=== PATIENT | female | born 1985 | race Caucasian/White ===

== ENCOUNTER 2018-01-13 09:36 | Emergency (ER) | payer BC, OTHER ==
[2018-01-13] MEDS ORDERED: Ondansetron PF 4 MG/2 ML Vial ONE ×2 (10:17→11:24)
[2018-01-13 10:45] LABS: #Basophils 0.1 thou/uL (0.0-0.2); #Eosinphils 0.1 thou/uL (0.0-0.7); #Lymphocytes 1.7 thou/uL (1.20-3.40); #Monocytes 0.5 thou/uL (0.11-0.59); %Eosinophils 1.8 % (0.0-10.0); %Lymphocytes 32.2 % (21.0-51.0); %Monocytes 8.9 % (0.0-10.0); %Neutrophils 56.1 % (42.0-75.0); Hemoglobin 13.2 g/dL (12.0-16.0); Mean Corpuscular HGB CONC 34.2 g/dL (32.0-36.0); Mean Corpuscular Volume 93.5 fl (81.0-99.0); Mean Platelet Volume 6.8 fL (7.4-10.4); Platelet Count 248 thou/uL (130-400); RBC Distribution Width 12.1 % (11.5-14.5); Red Blood Cell (RBC) Count 4.13 mill/uL (4.20-5.40); White Blood Cell (WBC) Count 5.3 thou/uL (4.8-10.8)
[2018-01-13 11:07] LABS: ALT (SGPT) 10 U/L (8-55); AST (SGOT) 16 U/L (5-34); Albumin 4.4 g/dL (3.5-5.0); Alkaline Phosphatase 51 U/L (40-150); Anion Gap 10 mmol/L (10-20); BUN (Urea Nitrogen) 8 mg/dL (7.0-18.7); Bilirubin, Total 0.7 mg/dL (0.2-1.2); Calc. Creatinine Clearance 0 mL/min (70-130); Calcium 9.5 mg/dL (7.8-10.44); Carbon Dioxide 25 mmol/L (22-29); Chloride 109 mmol/L (98-107); Estimated GFR-MDRD 80; Globulin 2.7 g/dL (2.4-3.5); Glucose 123 mg/dL (70-105); Lipase 18 U/L (8-78); Potassium 3.8 mmol/L (3.5-5.1); Protein, Total 7.1 g/dL (6.0-8.3); Sodium 140 mmol/L (136-145)
[2018-01-13 11:37] LABS: Bilirubin Negative (Negative); Glucose, Urine (Dipstick) Negative (Negative); pH, Urine 6.5 (5.0-9.0)
[2018-01-13 11:40] LABS: Pregnancy Test - Urine (BHCG) Negative (Negative); Pregu Control Background? CLEAR/WHITE (CLR/WHITE); Pregu Control Bar Appear? YES (CONTROL BAR); Specific Gravity 1.025 (1.002-1.036)
[2018-01-13 11:46] LABS: Clarity Opaque (Clear); Nitrite Unable to Interpret (Negative)
[2018-01-13 11:47] LABS: Blood, Urine Large (Negative); Protein, Urine (Dipstick) 100 mg/dL (Neg-Trace); Specific Gravity, Urine 1.025 (1.002-1.036); Urobilinogen UNABLE TO INTERPRET mg/dL (0.2-1.0)
[2018-01-13 11:49] LABS: RBC/HPF GREATER THAN 50-TNTC HPF (0-3)
[2018-01-13 11:50] LABS: Leukocyte Small (Negative)
[2018-01-13 11:57] LABS: Bacteria/HPF Rare-Few HPF (None Seen); Hyaline Casts/LPF NONE SEEN LPF (0-3 Hyaline)
[2018-01-13] MEDS ORDERED: Ketorolac Tromethamine 30 MG/ML VIAL ONE (11:57)
--- NOTE | 2018-01-13 13:26 | CT ---
CT ABDOMEN AND PELVIS WITHOUT IV CONTRAST: INDICATIONS: Right-sided abdominal pain. FINDINGS: There is mild to moderate right hydronephrosis. There is a 4 mm calculus within the distal right ure ter, at the level of the pelvic inlet. There are tiny, 1 to 2 mm, nonobstructing calculi within the inferior pole and superior pole of the right kidney. No nonobstructing calculi are seen within the l eft kidney. The lung bases are clear. No focal hepatic lesion is evident. The visualized spleen, pancreas, and adrenal glands appear within normal limits on this unopacified e xam. There is a normal retrocecal appendix. The bladder, rectum, and perirectal soft tissues are un remarkable. The uterus and adnexa appear within normal limits for CT. There is a mild amount of ret ained stool within the colon. No acute osseous abnormality is evident. IMPRESSION: 1. A 4 mm distal right ureteral calculus with mild to moderate right hydronephrosis. 2. Right nephrolithiasis. 3. Mild amount of retained stool within the colon. POS: LINNEA
== END 2018-01-13 13:38 | disposition home or self-care (01) ==
LOC: ERS 09:36
DX: N20.0 Calculus of kidney (principal); F41.9 Anxiety disorder, unspecified; Z79.01 Long term (current) use of anticoagulants; Z79.899 Other long term (current) drug therapy
CPT/HCPCS: 74176; 80053; 81003; 81015; 81025; 83690; 85025; 87086; 96361; 96374; 96375; 96376; J0696; J1885; J2270; J2405

== ENCOUNTER 2020-06-05 14:36 | Inpatient (IN) | payer BC ==
[~2020-06-05 14:36] MED LIST: Bupivacaine 0.25% HCL 30 ML VIAL ONE; Bupivacaine PF 0.5% 30 ML VIAL ONE; Bupivacaine/Epinephrine 0.25% 30 ML VIAL ONE
[2020-06-05] MEDS ORDERED: Lactated Ringer's 1,000 ML IV SCH (15:15)
[2020-06-05] MEDS ORDERED: HYDROcodone/Acetaminophen 5/325 mg Tablet PO PRN ×2 (15:15)
[2020-06-05] MEDS ORDERED: NS / Oxytocin 40 units/1000ml 1,000 ML IV PRN ×2 (15:15→15:41)
[2020-06-05] MEDS ORDERED: Butorphanol Tartrate 1 MG/ML VIAL SLOW IVP PRN (15:15)
[2020-06-05] MEDS ORDERED: Magnesium Sulfate 20 GM/WATER 500 ML BAG IVPB SCH (15:15)
[2020-06-05] MEDS ORDERED: Lidocaine 1% (PF) 30 ML VIAL SC PRN ×2 (15:15→15:41)
[2020-06-05] MEDS ORDERED: Promethazine HCl 25 MG/ML VIAL IM PRN (15:15)
[2020-06-05] MEDS ORDERED: Calcium Gluc 4.6 MEQ/10 ML (100 MG/ML) SLOW IVP PRN (15:15)
[2020-06-05] MEDS ORDERED: Ibuprofen 800 MG TAB PO PRN (15:15)
--- NOTE | 2020-06-05 15:25 | PDOC.LDHP ---
Labor and Delivery H&P HPI: Sent here from the Office for BPs 140/90s there. Sent per Dr Arias. 36 english at [facility] 06/19/20 here for c/o lights in vision and midepigastric "spasm ". Good FM, no VB, no LOF. Review of Systems: complete ROS performed and as per HPI Current gestational age (weeks): 37 (4) Due date: 06/19/20 Dating criteria: last menstrual period Grav: 2 Para: 1 OB History Details: x 1, gestational HTN Current complications: none Abnormal US findings: No Current medications: pre- vitamins Allergies/Adverse Reactions: Allergies Allergy/AdvReac Type Severity Reaction Status Date / Time No Known Allergies Allergy Verified 05/05/15 11:59 - Physical Exam Abnormal vital signs: 150-90s here, max systolic 157 General: resting Lungs: nonlabored breathing Abdomen: gravid FHT: category 1 Letts contractions every: none - Vaginal Exam cm dilated: 1 (per RN with me in room) Effacement: 50% Station: -2 - Assessment L&D Assessment: medically indicated induction (Severe Preeclampsia based on SXS possibly related to BP) - Plan Plan: admit to L&D, cervical ripening, labor augmentation if indicated, informed consent obtained, magnesium for seizure prophylaxis, anesthesia consult for pain management, other (Ordered CMP. I am at bedside now. Dr Ibarra aware. patient ok with plan.)
[2020-06-05] MEDS ORDERED: Penicillin G Potassium 5 MILL.UNITS in Sodium Chloride 0.9% 100 ML IVPB SCH (15:45)
[2020-06-05] MEDS ORDERED: Penicillin G Potassium 5 MILL.UNITS VIAL ONE (16:03)
[2020-06-05] MEDS: hydrALAZINE 20 MG/ML VIAL SLOW IVP PRN ×2 (16:41→16:58)
[2020-06-05 17:08] LABS: Hemoglobin 11.4 g/dL (12.0-16.0); Mean Corpuscular HGB CONC 34.1 g/dL (32.0-36.0); Mean Corpuscular Hemoglobin 30.8 pg (27.0-31.0); Mean Corpuscular Volume 90.3 fL (78.0-98.0); Mean Platelet Volume 8.6 fL (7.4-10.4); Platelet Count 230 thou/uL (130-400); RBC Distribution Width 12.2 % (11.5-14.5); Red Blood Cell (RBC) Count 3.71 mill/uL (4.20-5.40); White Blood Cell (WBC) Count 11.2 thou/uL (4.8-10.8)
[2020-06-05 17:32] LABS: ALT (SGPT) 7 U/L (8-55); AST (SGOT) 12 U/L (5-34); Albumin 3.3 g/dL (3.5-5.0); Alkaline Phosphatase 112 U/L (40-110); Anion Gap 13 mmol/L (10-20); BUN (Urea Nitrogen) 5 mg/dL (7.0-18.7); Bilirubin, Total 0.3 mg/dL (0.2-1.2); Calc. Creatinine Clearance 0 mL/min (70-130); Calcium 8.8 mg/dL (7.8-10.44); Carbon Dioxide 19 mmol/L (22-29); Chloride 110 mmol/L (98-107); Estimated GFR-MDRD Greater than 90; Globulin 2.7 g/dL (2.4-3.5); Glucose 67 mg/dL (70-105); Potassium 3.6 mmol/L (3.5-5.1); Sodium 138 mmol/L (136-145)
[2020-06-05 17:46] LABS: HBSAg Index 0.15 S/CO (0-0.99); HIV (1/2) Antibody/Antigen Non-Reactive (NonReactive); HIV 1/2 INDEX 0.12 S/CO (<1.00); Hep B Surf Ag Non-Reactive S/CO (NonReactive)
[2020-06-05 17:51] LABS: Syphilis Antibody Nonreactive (Nonreactive); Syphilis Antibody Index 0.03 S/CO (<1.00 Non-Reactive)
[2020-06-05] MEDS ORDERED: Labetalol HCl 100 MG/20 ML VIAL SLOW IVP SCH (18:00)
[2020-06-05] MEDS: Acetaminophen 500 MG TAB PO PRN (20:50)
[2020-06-05] MEDS: Penicillin G 2.5 MILL.units 2.5 MILL.UNITS in Premix Bag 1 BAG IVPB SCH (21:55)
[2020-06-05 22:24] VITALS: BMI 37.9
[2020-06-06] MEDS ORDERED: Fentanyl 4 mcg/Bup 0.1% Cadd 100 ML ONE ×2 (00:38→07:03)
[2020-06-06] MEDS ORDERED: Lactated Ringer's 500 ML IV PRN (01:32)
[2020-06-06] MEDS ORDERED: diphenhydrAMINE 50 MG/ML VIAL IVP PRN (01:32)
[2020-06-06] MEDS ORDERED: EPHEDRINE 25 MG/5 ML SYRINGE SLOW IVP PRN (01:32)
[2020-06-06] MEDS ORDERED: Promethazine HCl 25 MG/ML VIAL IM PRN (01:32)
[2020-06-06] MEDS ORDERED: Acetaminophen 325 MG TAB PO PRN (01:32)
[2020-06-06] MEDS ORDERED: Ondansetron PF 4 MG/2 ML Vial IVP PRN (01:32)
[2020-06-06] MEDS ORDERED: Naloxone HCl 0.4 mg/ml Vial IVP PRN ×2 (01:32)
[2020-06-06] MEDS ORDERED: Fentanyl 4 mcg/Bupivacaine 0.1% Cassette 100 ML EPIDURAL SCH (01:45)
[2020-06-06] MEDS ORDERED: Communication Order-Pharmacy FS SCH (01:45)
[2020-06-06] MEDS: Ondansetron PF 4 MG/2 ML Vial IVP PRN ×2 (01:48→07:39)
[2020-06-06] MEDS: Penicillin G 2.5 MILL.units 2.5 MILL.UNITS in Premix Bag 1 BAG IVPB SCH ×2 (02:13→06:25)
[2020-06-06] MEDS: Magnesium Sulfate 20 gm/500 ml 20 GM/500 ML BAG IVPB SCH ×2 (03:03→15:49)
[2020-06-06] MEDS ORDERED: NS w/ Oxytocin 10 units 500 ML ONE (03:24)
[2020-06-06] MEDS ORDERED: NS w/ Oxytocin 10 units 500 ML IVPB SCH (03:30)
[2020-06-06] MEDS: Acetaminophen 500 MG TAB PO PRN (03:45)
[2020-06-06] MEDS ORDERED: Labetalol HCl 100 MG/20 ML VIAL ONE (06:38)
[2020-06-06] MEDS ORDERED: Labetalol HCl 100 MG/20 ML VIAL SLOW IVP SCH ×3 (06:45→19:45)
[2020-06-06] MEDS ORDERED: Labetalol HCl 100 MG/20 ML VIAL SLOW IVP PRN (07:00)
[2020-06-06] MEDS ORDERED: Zolpidem Tartrate 5 MG TAB PO SCH (21:15)
[2020-06-06] MEDS ORDERED: NIFEdipine XL 30 MG TAB PO SCH (21:15)
[2020-06-06] MEDS ORDERED: Ibuprofen 800 MG TAB PO SCH (22:00)
[2020-06-07] MEDS: Magnesium Sulfate 20 gm/500 ml 20 GM/500 ML BAG IVPB SCH (02:23)
[2020-06-07] MEDS ORDERED: Ibuprofen 800 MG TAB PO SCH ×2 (02:30→14:00)
[2020-06-07] MEDS ORDERED: traMADol HCl 50 MG TAB PO PRN (07:37)
[2020-06-07] MEDS ORDERED: Benzocaine-Menthol 82.5 ML CAN TOP PRN (07:37)
[2020-06-07] MEDS ORDERED: Bisacodyl 10 MG SUPP PR PRN (07:37)
[2020-06-07] MEDS ORDERED: Milk Of Magnesia 30 ML UDCUP PO PRN (07:37)
[2020-06-07] MEDS ORDERED: Preparation H Ointment 28 GM TUBE PR PRN (07:37)
[2020-06-07] MEDS ORDERED: Lanolin Ointment 7 GM TUBE TOP PRN (07:37)
[2020-06-07] MEDS ORDERED: Misoprostol 200 MCG TAB VAG PRN (07:37)
[2020-06-07] MEDS ORDERED: Adacel (T-DAP) 0.5 ML SYRINGE IM ONE (07:37)
[2020-06-07] MEDS ORDERED: hydrALAZINE 20 MG/ML VIAL SLOW IVP PRN (07:37)
[2020-06-07] MEDS ORDERED: NS / Oxytocin 40 units/1000ml 1,000 ML IV SCH (07:45)
--- NOTE | 2020-06-07 07:51 | PDOC.EVN ---
Event Note - Event Note Event Note: LICU Excellent u/o >200 ml/hr. Blood pressures remain <160/100. No PIH symptoms. Rested well with the ambien. Baby doing well. A/P post day 1 from with severe pih-improving. D/c magnesium. Transfer to floor. Procardia 30 mg xl/d...
[2020-06-07] MEDS ORDERED: NIFEdipine XL 30 MG TAB PO SCH ×2 (09:00→21:00)
[2020-06-07] MEDS: Prenatal Vitamin 1 TAB PO SCH (09:41)
[2020-06-07] MEDS: Docusate Calcium (SURFAK) 240 MG CAP PO SCH ×2 (09:41→21:15)
[2020-06-07] MEDS: Ferrous Sulfate 325 MG TAB PO SCH ×2 (09:41→10:27)
[2020-06-07] MEDS: Penicillin G 2.5 MILL.units 2.5 MILL.UNITS in Premix Bag 1 BAG IVPB SCH ×3 (09:42→09:44)
[2020-06-07] MEDS: Misoprostol 100 MCG TAB VAG SCH ×2 (09:42→09:45)
[2020-06-07] MEDS: Ibuprofen 800 MG TAB PO SCH ×2 (12:49→21:15)
[2020-06-08] MEDS: Ibuprofen 800 MG TAB PO SCH (06:02)
--- NOTE | 2020-06-08 08:01 | PDOC.PP ---
Post Progress Note Post Day #: 2 Subjective: [place] better. Baby under bili lights. PO intake tolerated: yes Flatus: yes Ambulation: yes Vital Signs (12 hours) Temp Pulse Resp BP Pulse Ox 06/08/20 05:59 98.2 F 88 16 136/88 97 06/08/20 00:19 98.1 F 86 16 139/75 97 06/07/20 21:12 98.1 F 86 16 138/76 98 Weight Weight 235 lb - Physical Examination Abdominal: no distention, appropriately TTP Result Diagrams: 06/05/20 16:47 06/05/20 16:47 Additional Labs: Post Labs Blood Type O POSITIVE 06/05/20 16:47 Hep Bs Antigen Non-Reactive S/CO (NonReactive) 06/05/20 16:47 - Assessment/Plan Post day 2..blood pressures normalizing. Baby is good for discharge. Patient has blood pressure cuff at home. Instructed to check bid. If >160/100- call office. If <100 SBP-stop procardia. f/u 6 weeks.
[2020-06-08 08:07] VITALS: BP 135/83; TEMP 98.5
[2020-06-08] MEDS ORDERED: NIFEdipine XL 30 MG TAB PO SCH (09:00)
[2020-06-08] MEDS: Ferrous Sulfate 325 MG TAB PO SCH (09:07)
[2020-06-08] MEDS: Docusate Calcium (SURFAK) 240 MG CAP PO SCH (09:08)
[2020-06-08] MEDS: Prenatal Vitamin 1 TAB PO SCH (09:08)
== END 2020-06-08 11:20 | disposition home or self-care (01) | DRG 807 ==
LOC: L&D/OP 14:36 → L&D 22:29 → 3SE 06-07 09:28
PROVIDERS: ADMIT Obstetrics & Gynecology; ATTEND Obstetrics & Gynecology
PROC: 10E0XZZ Delivery of Products of Conception, External Approach (ICD-10-PCS; principal; 2020-06-05)
PROC: 0KQM0ZZ Repair Perineum Muscle, Open Approach (ICD-10-PCS; 2020-06-05)
DX: O14.14 Severe pre-eclampsia complicating childbirth (principal); Z37.0 Single live birth; O13.4 Gestational [pregnancy-induced] hypertension without significant proteinuria, complicating childbirth; Z3A.37 37 weeks gestation of pregnancy; O99.824 Streptococcus B carrier state complicating childbirth; O70.1 Second degree perineal laceration during delivery
CPT/HCPCS: 36415; 51702; 80053; 81003; 83735; 85027; 86780; 86850; 86900; 86901; 87340; 87389; 99285; J0360; J2405; J2540; J2590; J3475; S0020

== ENCOUNTER 2024-08-26 09:09 | Outpatient (CLI) | payer BC | END 2024-08-26 09:10 | disposition home or self-care (01) | LOC: BICMAMMO 09:09 | PROVIDERS: ATTEND Obstetrics & Gynecology | DX: R92.8 Other abnormal and inconclusive findings on diagnostic imaging of breast (principal); N64.89 Other specified disorders of breast | CPT/HCPCS: G0279 ==